=== PATIENT | male | born 1990 | race African-American/Black ===

== ENCOUNTER 2018-02-21 13:48 | Emergency (ER) | payer OTHER ==
[~2018-02-21] VITALS: Ht 177.8 cm; Wt 79.4 kg
--- NOTE | 2018-02-21 14:34 | NUR ---
Patient is resting comfortably on gurney with eyes closed, pending MD's MSE, calm & NAD.
--- NOTE | 2018-02-21 15:21 | NUR ---
Patient is watching bedside TV, occasionally sticking his tongue out, directable, calm & cooperative at this time, respiration:easy
[2018-02-21 15:41] LABS: *BLOOD, URINE NEGATIVE (NEGATIVE); *CLARITY,URINE CLEAR (CLEAR); *COLOR,URINE DARK YELLOW (YELLOW); *KETONES,URINE NEGATIVE (NEGATIVE); *PROTEIN,URINE TRACE (NEGATIVE); LEUKOCYTE ESTERASE ,URINE NEGATIVE (NEGATIVE); NITRITE, URINE NEGATIVE (NEGATIVE); PH,URINE 5.5 (5.0-8.0); UGLUCOSE NEGATIVE (NEGATIVE)
[2018-02-21 15:41] LABS: BASOPHILS # (AUTO) 0.1 K/uL (0.0-8.0); BASOPHILS % (AUTO) 1.4 % (0.0-2.0); EOSINOPHILS # (AUTO) 0.2 K/uL (0.0-0.7); EOSINOPHILS % (AUTO) 4.6 % (0.0-7.0); HEMATOCRIT 39.9 % (36.7-47.1); HEMOGLOBIN 13.1 g/dL (12.5-16.3); LYMPHOCYTES # (AUTO) 1.5 K/uL (20.0-40.0); LYMPHOCYTES % (AUTO) 42.4 % (20.5-51.5); MEAN CORPUSCULAR HEMOGLOBIN 27.9 uug (23.8-33.4); MEAN CORPUSCULAR HGB CONC 33 g/dL (32.5-36.3); MEAN CORPUSCULAR VOLUME 84.7 fL (73.0-96.2); MONOCYTES # (AUTO) 0.4 K/uL (2.0-10.0); MONOCYTES % (AUTO) 11.6 % (0.0-11.0); NEUTROPHILS # (AUTO) 1.4 K/uL (1.8-8.9); PLATELET COUNT (AUTO) 240 K/uL (152-348); RED BLOOD CELL COUNT(AUTO) 4.71 MIL/uL (4.06-5.63); WHITE BLOOD COUNT (AUTO) 3.5 K/uL (3.6-10.2)
[2018-02-21 15:53] LABS: ACETAMINOPHEN < 2.0 ug/mL (10-30); ALANINE AMINOTRANSFERASE 32 U/L (16-63); ALKALINE PHOSPHATASE 58 U/L (50-136); ASPARTATE AMINOTRANSFERASE 36 U/L (15-37); BILIRUBIN,DIRECT 0.3 mg/dL (0.0-0.2); BILIRUBIN,TOTAL 1.6 mg/dL (0.2-1.0); CARBON DIOXIDE 27 mmol/L (21-32); CHLORIDE 103 mmol/L (98-107); CREATININE 1.2 mg/dL (0.6-1.3); GLUCOSE 82 mg/dL (74-106); TOTAL PROTEIN, SERUM 7.7 g/dL (6.4-8.2); UREA NITROGEN, BLOOD 11 mg/dL (7-18)
--- NOTE | 2018-02-21 15:55 | NUR ---
Patient is medically cleared by Dr Gates.
[2018-02-21 15:58] LABS: *AMPHETAMINE, URINE NEGATIVE (NEGATIVE); *BARBITURATE, URINE NEGATIVE (NEGATIVE); *CANNABINOID, URINE POSITIVE (NEGATIVE); *COCCAINE, URINE NEGATIVE (NEGATIVE); *OPIATE, URINE NEGATIVE (NEGATIVE); *PHENCYCLIDINE SCREEN,URINE NEGATIVE (NEGATIVE)
[2018-02-21 16:00] LABS: ETHANOL < 3 MG/DL (0-0)
--- NOTE | 2018-02-21 16:00 | NUR ---
Call placed to [facility], for PET evaluation. ETA 30 MIN.
[2018-02-21 16:12] LABS: *BILIRUBIN,URIN 1+ (NEGATIVE)
[2018-02-21 16:13] LABS: RBC,URINE 0-3 /HPF (0-3)
[2018-02-21 16:14] LABS: MUCUS,URINE MANY /LPF (0-FEW)
--- NOTE | 2018-02-21 16:56 | NUR ---
Dinner tray@bedside, still for disposition
--- NOTE | 2018-02-21 17:22 | NUR ---
Henry graves in ED - 02/21/18 at 1845 by [facility] Crisis socail worker Olive is here & working on possibly placing the patient to a psych unit.
--- NOTE | 2018-02-21 17:37 | NUR ---
Patient ate 100% of his dinner tray.
--- NOTE | 2018-02-21 19:12 | NUR ---
still for transfer to an adult [facility] facility, SBAR to JAGJIT Henderson
--- NOTE | 2018-02-21 20:03 | NUR ---
TRANSPORT ARRIVES FOR PT--[facility]
--- NOTE | 2018-02-21 20:05 | NUR ---
REPORT GIVEN TO [facility]S PSYCH NURSE, JAGJIT ENGLE.
--- NOTE | 2018-02-21 20:27 | NUR ---
PT LEAVES WITH EMT DOM TORRES IN [facility]. MELISSA GIVEN REPORT PRIOR TO TRANSPORT.
== END 2018-02-21 20:27 | disposition short-term general hospital (02) ==
LOC: ER 13:50
DX: F25.9 Schizoaffective disorder, unspecified (principal); M25.562 Pain in left knee
CPT/HCPCS: 36415; 80307; 85025; A4663; G0480; G0480-TC

== ENCOUNTER 2019-09-15 10:31 | Emergency (ER) | payer SELFPAY ==
--- NOTE | 2019-09-15 10:37 | NUR ---
Per ER admitting pt walked out of the ER without saying anything.
== END 2019-09-15 10:37 | disposition left against medical advice (07) ==
LOC: ER 10:31
DX: Z53.21 Procedure and treatment not carried out due to patient leaving prior to being seen by health care provider (principal)